=== PATIENT | female | born 1960 | race American Indian/Alaskan Native ===

== ENCOUNTER 2021-05-30 09:00 | Outpatient (CLI) | payer OTHER | END 2021-05-30 09:15 | disposition home or self-care (01) | LOC: PPH VACUNA 09:00 | PROVIDERS: ATTEND Emergency Medicine Pediatric Emergency Medicine | DX: Z23 Encounter for immunization (principal) ==

== ENCOUNTER 2021-06-20 08:00 | Outpatient (CLI) | payer OTHER | END 2021-06-20 08:30 | disposition home or self-care (01) | LOC: PPH VACUNA 08:00 | PROVIDERS: ATTEND Emergency Medicine Pediatric Emergency Medicine | DX: Z23 Encounter for immunization (principal) ==

== ENCOUNTER 2022-09-03 09:45 | Inpatient (IN) | payer OTHER ==
[~2022-09-03] VITALS: Ht 154.9 cm; Wt 77.1 kg
[2022-09-03] MEDS ORDERED: ZYRTEC10 M3 PO (13:40)
[2022-09-03] MEDS ORDERED: SYNTHROID100 MCG PO (13:40)
[2022-09-03] MEDS ORDERED: NORVASC5 MG PO (13:40)
[2022-09-03] MEDS ORDERED: VITAMIN D PO (13:41)
[2022-09-03] MEDS ORDERED: PEPCID AC10 MG PO (13:41)
[2022-09-03] MEDS ORDERED: ACTONEL150 MG PO (13:42)
[2022-09-03] MEDS ORDERED: PROTONIX PO (13:43)
[2022-09-03] MEDS ORDERED: [UNRECOGNIZED DRUG - OTHER] PO (13:43)
[2022-09-03] MEDS ORDERED: CHOLEST OFF PO (13:44)
[2022-09-07] MEDS ORDERED: MONTELUKAST SOD10 MG (13:54)
[2022-09-07] MEDS ORDERED: PANTOPRAZOLE SO40 MG (13:54)
[2022-09-10] MEDS ORDERED: LEVSIN/SL0.125 MG SL (07:45)
[2022-09-10] MEDS ORDERED: INTESTINEX680 M1 PO (07:46)
[2022-09-10] MEDS ORDERED: TRAM1TAB98 PO (07:46)
== END 2022-09-10 12:55 | disposition home or self-care (01) | DRG 331 ==
LOC: SURG 09-07 09:45 → O/R 09-07 09:51 → SURG 09-07 09:51
PROVIDERS: ADMIT Surgery; ATTEND Surgery
PROC: 0DBP4ZZ Excision of Rectum, Percutaneous Endoscopic Approach (ICD-10-PCS; 2022-09-07)
PROC: 07BB4ZZ Excision of Mesenteric Lymphatic, Percutaneous Endoscopic Approach (ICD-10-PCS; 2022-09-07)
PROC: 0DJD8ZZ Inspection of Lower Intestinal Tract, Via Natural or Artificial Opening Endoscopic (ICD-10-PCS; 2022-09-07)
PROC: 0DTN4ZZ Resection of Sigmoid Colon, Percutaneous Endoscopic Approach (ICD-10-PCS; principal; 2022-09-07 18:15)
DX: D12.5 Benign neoplasm of sigmoid colon (principal); N73.6 Female pelvic peritoneal adhesions (postinfective); R59.0 Localized enlarged lymph nodes; I11.9 Hypertensive heart disease without heart failure